=== PATIENT | female | born 1975 | race African-American/Black ===

== ENCOUNTER 2019-09-02 17:25 | Emergency (ER) | payer OTHER ==
[~2019-09-02] VITALS: Ht 170.2 cm; Wt 242.7 kg
--- NOTE | 2019-09-02 18:07 | PHYS DOC ---
Adult General Chief Complaint Chief Complaint: ABDOMINAL PAIN HPI HPI Patient is a 43 year old female who presents with states for the last week she's had left upper quadrant pain and diarrhea. Patient denies any fevers. Patient also states that she has been out of all her diabetes medication, hypertension medication, anxiety and depression medications for 6 months. Patient states she has a upcoming doctor's appointment on September 12. Patient states the left upper quadrant pain as a 5 out of 10. She states the pain is dull/pressure. Patient states she feels better when she lays down. Patient states when she is sitting up or moving the pain is worse. Patient's heart rate is 109 and blood pressure is 242/122. Blood sugar is 167. Review of Systems Review of Systems Constitutional: Denies fever or chills [] Eyes: Denies change in visual acuity, redness, or eye pain [] HENT: Denies nasal congestion or sore throat [] Respiratory: Denies cough or shortness of breath [] Cardiovascular: No additional information not addressed in HPI [] GI: Denies abdominal pain, nausea, vomiting, bloody stools or diarrhea [] : Denies dysuria or hematuria [] Musculoskeletal: Denies back pain or joint pain [] Integument: Denies rash or skin lesions [] Neurologic: Denies headache, focal weakness or sensory changes [] Endocrine: Denies polyuria or polydipsia [] All other systems were reviewed and found to be within normal limits, except as documented in this note. Current Medications Current Medications Current Medications Medications (Trade) Dose Ordered Sig/Ja Start Time Stop Time Status Last Admin Dose Admin Clonidine HCl (Catapres) 0.1 mg 1X ONCE 09/02/19 20:15 09/02/19 20:16 DC 09/02/19 20:10 0.1 MG Fentanyl Citrate (Fentanyl 2ml Vial) 50 mcg 1X ONCE 09/02/19 18:15 09/02/19 18:16 DC 09/02/19 19:22 50 MCG Info (CONTRAST GIVEN -- Rx MONITORING) 1 each PRN DAILY PRN 09/02/19 18:45 09/04/19 18:44 Iohexol (Omnipaque 300 Mg/ml) 75 ml 1X ONCE 09/02/19 19:00 09/02/19 19:01 DC 09/02/19 19:00 75 ML Sodium Chloride 1,000 ml @ 1,000 mls/hr 1X ONCE 09/02/19 18:15 09/02/19 19:14 DC 09/02/19 19:21 1,000 MLS/HR Allergies Allergies Allergies Coded Allergies Type Severity Reaction Last Updated Verified No Known Drug Allergies 09/02/19 No Physical Exam Physical Exam Constitutional: Well developed, well nourished, no acute distress, non-toxic appearance. [] HENT: Normocephalic, atraumatic, bilateral external ears normal, oropharynx moist, no oral exudates, nose normal. [] Eyes: PERRLA, EOMI, conjunctiva normal, no discharge. [] Neck: Normal range of motion, no tenderness, supple, no stridor. [] Cardiovascular:Heart rate regular Tachy rhythm, no murmur [] Lungs & Thorax: Bilateral breath sounds clear to auscultation [] Abdomen: Bowel sounds normal, soft, LUQ tenderness, no masses, no pulsatile masses. [] Skin: Warm, dry, no erythema, no rash. [] Back: No tenderness, no CVA tenderness. [] Extremities: No tenderness, no cyanosis, no clubbing, ROM intact, Bilateral lower extremity 2+ nonpitting edema. [] Neurologic: Alert and oriented X 3, normal motor function, normal sensory function, no focal deficits noted. [] Psychologic: Affect normal, judgement normal, mood normal. [] Current Patient Data Vital Signs Vital Signs Date Time Temp Pulse Resp B/P (MAP) Pulse Ox O2 Delivery O2 Flow Rate FiO2 09/02/19 20:24 101 14 174/93 (120) 95 Room Air 09/02/19 18:02 98.8 98.8 Lab Values Laboratory Tests Test 09/02/19 17:42 09/02/19 18:02 09/02/19 18:56 Glucose (Fingerstick) 167 mg/dL (70-99) H White Blood Count 8.6 x10^3/uL (4.0-11.0) Red Blood Count 4.94 x10^6/uL (3.50-5.40) Hemoglobin 14.8 g/dL (12.0-15.5) Hematocrit 43.8 % (36.0-47.0) Mean Corpuscular Volume 89 fL (79-100) Mean Corpuscular Hemoglobin 30 pg (25-35) Mean Corpuscular Hemoglobin Concent 34 g/dL (31-37) Red Cell Distribution Width 13.8 % (11.5-14.5) Platelet Count 185 x10^3/uL (140-400) Neutrophils (%) (Auto) 64 % (31-73) Lymphocytes (%) (Auto) 31 % (24-48) Monocytes (%) (Auto) 3 % (0-9) Eosinophils (%) (Auto) 1 % (0-3) Basophils (%) (Auto) 1 % (0-3) Neutrophils # (Auto) 5.5 x10^3/uL (1.8-7.7) Lymphocytes # (Auto) 2.6 x10^3/uL (1.0-4.8) Monocytes # (Auto) 0.3 x10^3/uL (0.0-1.1) Eosinophils # (Auto) 0.1 x10^3/uL (0.0-0.7) Basophils # (Auto) 0.1 x10^3/uL (0.0-0.2) Sodium Level 144 mmol/L (136-145) Potassium Level 3.9 mmol/L (3.5-5.1) Chloride Level 106 mmol/L (98-107) Carbon Dioxide Level 30 mmol/L (21-32) Anion Gap 8 (6-14) Blood Urea Nitrogen 14 mg/dL (7-20) Creatinine 0.9 mg/dL (0.6-1.0) Estimated GFR (Cockcroft-Gault) 83.5 BUN/Creatinine Ratio 16 (6-20) Glucose Level 181 mg/dL (70-99) H Calcium Level 9.3 mg/dL (8.5-10.1) Total Bilirubin 0.2 mg/dL (0.2-1.0) Aspartate Amino Transferase (AST) 15 U/L (15-37) Alanine Aminotransferase (ALT) 21 U/L (14-59) Alkaline Phosphatase 76 U/L (46-116) Troponin I Quantitative < 0.017 ng/mL (0.000-0.055) Total Protein 8.7 g/dL (6.4-8.2) H Albumin 3.5 g/dL (3.4-5.0) Albumin/Globulin Ratio 0.7 (1.0-1.7) L Lipase 63 U/L (73-393) L Urine Collection Type Unknown Urine Color Yellow Urine Clarity Clear Urine pH 5.5 Urine Specific [place] >=1.030 Urine Protein 30 mg/dL (NEG-TRACE) Urine Glucose (UA) Negative mg/dL (NEG) Urine Ketones (Stick) Negative mg/dL (NEG) Urine Blood Negative (NEG) Urine Nitrite Negative (NEG) Urine Bilirubin Negative (NEG) Urine Urobilinogen Dipstick 1.0 mg/dL (0.2 mg/dL) Urine Leukocyte Esterase Small (NEG) Urine RBC 0 /HPF (0-2) Urine WBC 5-10 /HPF (0-4) Urine Squamous Epithelial Cells Mod /LPF Urine Bacteria Many /HPF (0-FEW) Urine Mucus Marked /LPF Urine Test Negative (NEG) Laboratory Tests 09/02/19 18:02 Laboratory Tests 09/02/19 18:02 EKG EKG Sinus Rhythm and no STEMI[] Interpretation Time: [address] Marsh Radiology/Procedures Radiology/Procedures [] Impressions: [facility] [address] [place], [place] [id number] IMAGING REPORT Signed PATIENT: BRYAN CATESCOUNT: [id number] : 1975 LOCATION: ER AGE: 43 SEX: F EXAM STATUS: REG ER ORD. PHYSICIAN: JULIAN VILLATORO APRN REASON: LUQ Pain PROCEDURE: CT ABD PELV W/ IV CONTRST ONLY CT scan of the abdomen and pelvis with contrast 09/02/2019 CLINICAL HISTORY: Left upper quadrant abdominal pain. TECHNIQUE: After the intravenous administration of 75 cc of Omnipaque 350 only, contiguous, 5 mm axial sections were obtained through the abdomen and pelvis. One or more of the following individualized dose reduction techniques were utilized for this study: 1. Automated exposure control. 2. Adjustment of the mA and/or kV according to patient size. 3. Use of iterative reconstruction technique. FINDINGS: Images from the study are degraded by significant beam hardening artifact related to the patient's extraordinarily large body habitus. Images through the lung bases demonstrate minimal dependent subsegmental atelectasis bilaterally. The liver is mildly enlarged measuring 21 cm in length. Decreased attenuation of the liver parenchyma is seen consistent with fatty infiltration. The spleen, pancreas, adrenal glands and kidneys are within normal limits. The abdominal aorta tapers normally. The gallbladder is slightly contracted. No free fluid or free air is seen within the abdomen. There is no evidence of bowel obstruction. The appendix is partially visualized and is within normal limits. Images through the pelvis demonstrate the urinary bladder to be contracted. An IUD is seen within the expected location of the endometrial canal of the uterus. No adnexal mass is noted. No free fluid is seen. Very mild S-shaped curvature of the thoracolumbar spine is noted. Degenerative changes are seen involving the lower thoracic and mid and lower lumbar spine along with both hips. IMPRESSION: No acute abnormality is seen. Electronically signed by: Blair Faye MD (09/02/2019 8:18 PM) [facility] DICTATED and SIGNED BY: BLAIR FAYE MD DATE: 09/02/192017 Course & Med Decision Making Course & Med Decision Making Patient is a 43 year old female who presents with states for the last week she's had left upper quadrant pain and diarrhea. Patient denies any fevers. Patient also states that she has been out of all her diabetes medication, hypertension medication, anxiety and depression medications for 6 months. Patient states she has a upcoming doctor's appointment on September 12. Patient states the left upper quadrant pain as a 5 out of 10. She states the pain is dull/pressure. Patient states she feels better when she lays down. Patient states when she is sitting up or moving the pain is worse. Patient's heart rate is 109 and blood pressure is 242/122. Patient is asymptomatic of HTN. Blood sugar is 167. She states that she feels that she is having excessive urination. Patient denies chest pain, shortness of air, headache, dizziness, visual changes, syncopal episode, dysuria, nausea, vomiting. PERRLA. Alert and oriented. Ambulatory with a steady gait. Patient is morbidly obese. Patient states that she usually smokes 3 cigarettes a day. Patient has 1-2+ lower extremity nonpitting edema. Patient denies any recent injuries. Abdomen is soft and slightly tender to left upper quadrant. Lungs are clear to auscultation in all lobes. Speaks in full clear sentences. Skin pink warm and dry. After reexamination the patients blood pressure has come down to 186/135. I have given her a dose of clonidine. Patient urinalysis shows infection. Chest xray shows no acute findings and was read by Dr Marsh. 2044: After Clonidine is given patient blood pressure is down to 174/93. I have consulted with Dr Marsh on this patient's care plan. Patient to be discharged home and to follow up as scheduled with her doctor on September 12. Dragon Disclaimer Dragon Disclaimer This electronic medical record was generated, in whole or in part, using a voice recognition dictation system. Departure Departure Impression: Primary Impression: UTI (urinary tract infection) Additional Impression: Hypertension Disposition: HOME, SELF-CARE Condition: STABLE Referrals: NON,STAFF (PCP) Patient Instructions: Hypertension, Urinary Tract Infection Additional Instructions: Follow up with primary care as provider and get back on your medications as soon as possible. Scripts Cephalexin (KEFLEX) 500 Mg Capsule 1 CAP PO BID, #14 CAP Prov: JULIAN VILLATORO APRN 09/02/19 Hydrochlorothiazide (HYDROCHLOROTHIAZIDE TABLET ) 25 Mg Tablet 25 MG PO DAILY for HYPERTENTION for 30 Days, #30 TAB 0 Refills Prov: JULIAN VILLATORO APRN 09/02/19 Problem Qualifiers Primary Impression: UTI (urinary tract infection) Urinary tract infection type: site unspecified Hematuria presence: without hematuria Qualified Codes: N39.0 - Urinary tract infection, site not specified Additional Impression: Hypertension Hypertension type: essential hypertension Qualified Codes: I10 - Essential (primary) hypertension JULIAN VILLATORO APRN Sep 02, 2019 18:07
[2019-09-02 18:11] LABS: BASO # 0.1 x10^3/uL (0.0-0.2); BASO % 1 % (0-3); EOS # 0.1 x10^3/uL (0.0-0.7); EOS % 1 % (0-3); HEMATOCRIT 43.8 % (36.0-47.0); HEMOGLOBIN 14.8 g/dL (12.0-15.5); LYMPH # 2.6 x10^3/uL (1.0-4.8); LYMPH % 31 % (24-48); MEAN CORPUSCULAR HEMOGLOBIN 30 pg (25-35); MEAN CORPUSCULAR HGB CONC 34 g/dL (31-37); MEAN CORPUSCULAR VOLUME 89 fL (79-100); MONO # 0.3 x10^3/uL (0.0-1.1); MONO % 3 % (0-9); NEUT # 5.5 x10^3/uL (1.8-7.7); NEUT % 64 % (31-73); PLATELET COUNT 185 x10^3/uL (140-400); RED BLOOD COUNT 4.94 x10^6/uL (3.50-5.40); RED CELL DISTRIBUTION WIDTH 13.8 % (11.5-14.5); WHITE BLOOD COUNT 8.6 x10^3/uL (4.0-11.0)
[2019-09-02] MEDS ORDERED: fentaNYL PF VIAL 100 MCG/2 ML VIAL IVP ONE (18:15)
[2019-09-02] MEDS ORDERED: IV NORMAL SALINE 1000ML BAG 1,000 ML IV ONE (18:15)
[2019-09-02 18:26] LABS: CALCIUM 9.3 mg/dL (8.5-10.1); CREATININE 0.9 mg/dL (0.6-1.0); GFR 83.5; POTASSIUM 3.9 mmol/L (3.5-5.1)
[2019-09-02 18:31] LABS: ALBUMIN 3.5 g/dL (3.4-5.0); ALBUMIN/GLOBULIN RATIO 0.7 (1.0-1.7); TOTAL BILIRUBIN 0.2 mg/dL (0.2-1.0); TOTAL PROTEIN 8.7 g/dL (6.4-8.2)
[2019-09-02] MEDS ORDERED: CONTRAST GIVEN. MC PRN (18:45)
[2019-09-02] MEDS ORDERED: IOHEXOL 300 MG/ML 100ML VIAL. IV ONE (19:00)
[2019-09-02 19:37] LABS: BILIRUBIN,URINE NEGATIVE (NEG); CLARITY,URINE CLEAR; COLOR,URINE YELLOW; NITRITE,URINE NEGATIVE (NEG); PH,URINE 5.5; PROTEIN,URINE 30 mg/dL (NEG-TRACE)
[2019-09-02 19:46] LABS: BACTERIA,URINE MANY /HPF (0-FEW); RBC,URINE 0 /HPF (0-2); SQUAMOUS EPITHELIAL CELL,UR MOD /LPF
[2019-09-02] MEDS ORDERED: cloNIDine HCL 0.1 MG TABLET PO ONE (20:15)
--- NOTE | 2019-09-02 20:20 | RAD ---
CT scan of the abdomen and pelvis with contrast 09/02/2019 CLINICAL HISTORY: Left upper quadrant abdominal pain. TECHNIQUE: After the intravenous administration of 75 cc of Omnipaque 350 only, contiguous, 5 mm axial sections were obtained through the abdomen and pelvis. One or more of the following individualized dose reduction techniques were utilized for this study: 1. Automated exposure control. 2. Adjustment of the mA and/or kV according to patient size. 3. Use of iterative reconstruction technique. FINDINGS: Images from the study are degraded by significant beam hardening artifact related to the patient's extraordinarily large body habitus. Images through the lung bases demonstrate minimal dependent subsegmental atelectasis bilaterally. The liver is mildly enlarged measuring 21 cm in length. Decreased attenuation of the liver parenchyma is seen consistent with fatty infiltration. The spleen, pancreas, adrenal glands and kidneys are within normal limits. The abdominal aorta tapers normally. The gallbladder is slightly contracted. No free fluid or free air is seen within the abdomen. There is no evidence of bowel obstruction. The appendix is partially visualized and is within normal limits. Images through the pelvis demonstrate the urinary bladder to be contracted. An IUD is seen within the expected location of the endometrial canal of the uterus. No adnexal mass is noted. No free fluid is seen. Very mild S-shaped curvature of the thoracolumbar spine is noted. Degenerative changes are seen involving the lower thoracic and mid and lower lumbar spine along with both hips. IMPRESSION: No acute abnormality is seen. Electronically signed by: Blair Faye MD (09/02/2019 8:18 PM) [facility]
[2019-09-02 20:26] LABS: U PREG PATIENT NEGATIVE (NEG)
[2019-09-02 20:54] VITALS: BP 176/117
[2019-09-02] MEDS ORDERED: HYDR-2145 PO (20:59)
[2019-09-02] MEDS ORDERED: CEPH-264 PO (20:59)
--- NOTE | 2019-09-02 22:16 | RAD ---
PA and lateral chest radiographs 09/02/2019 CLINICAL HISTORY: Epigastric pain. PA and lateral digital radiographs of chest were obtained. No previous studies are available for comparison. These radiographs are limited to some degree due to the patient's large body habitus. The cardiac silhouette is borderline enlarged. The thoracic aorta is tortuous. No acute pulmonary infiltrate is seen. No pleural effusion or pneumothorax is noted. Mild degenerative changes are seen involving the thoracic spine. IMPRESSION: No acute abnormality is seen. Electronically signed by: Blair Faye MD (09/02/2019 10:13 PM) [facility]
--- NOTE | 2019-09-03 11:23 | EKG ---
[facility] [address] [place] [id number] Test Date: 2019-09-02 Test Time: 18:22:38 Pat Name: KIRK CATES Department: Room: Gender: F Guest Experience Specialist: : 1975 Requested By: JULIAN VILLATORO Order Number: [id number] Reading MD: Measurements Intervals [place] Rate: 97 P: 17 MD: 136 QRS: 44 QRSD: 96 T: -6 QT: 366 QTc: 469 Interpretive Statements SINUS RHYTHM T ABNORMALITY IN INFERIOR LEADS ABNORMAL ECG No previous ECG available for comparison
== END 2019-09-02 21:02 | disposition home or self-care (01) ==
LOC: ER 17:25
DX: N39.0 Urinary tract infection, site not specified (principal); I10 Essential (primary) hypertension; R19.7 Diarrhea, unspecified; R10.12 Left upper quadrant pain; F17.210 Nicotine dependence, cigarettes, uncomplicated; E11.9 Type 2 diabetes mellitus without complications; E66.01 Morbid (severe) obesity due to excess calories; Z68.45 Body mass index [BMI] 70 or greater, adult
CPT/HCPCS: 36415; 71046; 74177; 80053; 81001; 81025; 82962; 83690; 84484; 85025; 87086; 93005; 96361; 96374; 99285; J3010; J7030; Q9967